=== PATIENT | male | born 1980 | race Caucasian/White ===

== ENCOUNTER 2020-12-02 10:39 | Emergency (ER) | payer BC ==
--- NOTE | 2020-12-02 11:11 | EDM.PDOC ---
ED HPI GENERAL MEDICAL PROBLEM - General Chief Complaint: Laceration Stated Complaint: PIECE OF TILE CAME UP AND HIT HEAD Time Seen by Provider: 12/02/20 11:06 Source of Information: Reports: Patient, Old Records History Limitations: Reports: No Limitations - History of Present Illness INITIAL COMMENTS - FREE TEXT/NARRATIVE: 40 yo male was hit in the face by a piece of tile this morning resulting in a laceration of the nasal bridge. No epistaxis or LOC or SMITH. No other injuries. He believes his tetanus is UTD. 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 Denies: Headache, Syncope ED EXAM, SKIN/RASH Exam: See Below Exam Limited By: No Limitations General Appearance: Alert, WD/WN, No Apparent Distress Eye Exam: Bilateral Eye: PERRL Ears: Hearing Grossly Normal Nose: Normal Inspection, No Blood, Other (skin wound at bridge). No: Nasal Tenderness Throat/Mouth: Normal Lips, Normal Voice, No Airway Compromise Head: Atraumatic, Normocephalic Neck: Normal Inspection Neurological: Alert, Oriented, CN II-XII Intact, Normal Cognition, No Motor/Sensory Deficits Psychiatric: Normal Affect, Normal Mood Skin: Warm, Dry, Normal Color, No Rash, Wound/Incision. No: Intact Location, Skin: Face (nasal bridge) Characteristics: Other (V shaped) ED SKIN PROCEDURES - Laceration/Wound Repair Upper Face Appearance: Subcutaneous, Clean Anesthetic Type: Other (none) Skin Prep: Saline Exploration/Debridement/Repair: Other (wound palpated to R/O FB's under the skin) Closed with: Dermabond Lac/Wound length In cm: 3.1 Drain Placement: No Sterile Dressing Applied: None Tetanus Status Addressed: Yes Complications: No Complication Description: The medial 1/4 cm of the upper and lower eye lid got sealed together by Dermabond. There was no eye burning. He was still able to open that eye and see normally. Course - Vital Signs Last Recorded V/S: Last Vital Signs Temp 35.3 C L 12/02/20 11:11 Pulse 67 12/02/20 11:11 Resp 16 12/02/20 11:11 BP 125/81 12/02/20 11:11 Pulse Ox 99 12/02/20 11:11 Departure - Departure Time of Disposition: 11:25 Disposition: Home, Self-Care 01 Condition: Good Clinical Impression: Nasal laceration Qualifiers: Encounter type: initial encounter Qualified Code(s): S01.21XA - Laceration without foreign body of nose, initial encounter - Discharge Information *PRESCRIPTION DRUG MONITORING PROGRAM REVIEWED*: Not Applicable *COPY OF PRESCRIPTION DRUG MONITORING REPORT IN PATIENT AMANDA: Not Applicable Referrals: PCP,None [Primary Care Provider] - Forms: ED Department Discharge Additional Instructions: Take acetaminophen as needed for pain relief. Allow the Dermabond to wear off. Return here or the clinic if redness should occur around the margins of the laceration. Do not pull on the Dermabond to try to get the eyelids apart, this will release normally in a few days as the Dermabond wears off. Sepsis Event Note (ED) - Focused Exam Vital Signs: Vital Signs Temp Pulse Resp BP Pulse Ox 12/02/20 11:11 35.3 C L 67 16 125/81 99 12/02/20 11:03 35.3 C L 67 16 125/81 99
== END 2020-12-02 11:35 | disposition home or self-care (01) ==
LOC: JP.ED 10:39
DX: S01.21XA Laceration without foreign body of nose, initial encounter (principal); Z88.1 Allergy status to other antibiotic agents; W22.8XXA Striking against or struck by other objects, initial encounter
CPT/HCPCS: 12013; 99282-25